=== PATIENT | female | born 1980 | race Caucasian/White ===

== ENCOUNTER 2022-07-01 20:52 | Emergency (ER) | payer OTHER ==
[2022-07-01 21:18] VITALS: BP 133/79; PULSE 91; RESP 19; TEMP 97.8; BMI 30.9
[2022-07-01] MEDS ORDERED: ACETAMINOPHEN 500 MG TABLET (FP) PO ONE (22:31)
[2022-07-01] MEDS ORDERED: KETOROLAC TROMETHAMINE 30 MG/1 ML VIAL IM ONE (22:31)
[2022-07-01] MEDS ORDERED: AMOX TR/POT CLAV 875MG/125MG TABLETS (FP) PO ONE (22:32)
[2022-07-01] MEDS ORDERED: ACETAMINOPHEN 325 MG TABLET (FP) ONE ×2 (22:33→22:41)
[2022-07-01] MEDS ORDERED: ACETAMINOPHEN 325 MG TABLET (FP) PO ONE (22:33)
[2022-07-01] MEDS ORDERED: KETOROLAC TROMETHAMINE 30 MG/1 ML VIAL ONE (22:34)
[2022-07-01] MEDS ORDERED: AMOX TR/POT CLAV 875MG/125MG TABLETS (FP) ONE ×2 (22:35→22:41)
== END 2022-07-01 23:35 | disposition home or self-care (01) ==
LOC: JERFT 20:52 → JER 20:52
PROC: 3E023GC Introduction of Other Therapeutic Substance into Muscle, Percutaneous Approach (ICD-10-PCS; principal; 2022-07-01)
DX: K08.89 Other specified disorders of teeth and supporting structures (principal)
CPT/HCPCS: 99284-25